=== PATIENT | male | born 1950 | race African-American/Black ===

== ENCOUNTER 2017-12-05 23:16 | Emergency (ER) | END 2017-12-07 12:39 ==

== ENCOUNTER 2018-05-01 17:44 | Emergency (ER) | payer OTHER, MEDICARE ==
[~2018-05-01] VITALS: Ht 177.8 cm; Wt 70.0 kg
[~2018-05-01 17:44] MED LIST: ASPI-817 PO; ATOR-2 PO; CHOL100062 PO; CLOP75TA19 PO; DOCU250C58 PO; FURO40TA4 PO; LISI40TA3 PO; METF500T24 PO; METO200T49 PO; SERT50TA6 PO; SPIR25TA PO; TRAZ-111 PO
[2018-05-01 17:48] VITALS: Ht 177.8 cm; Wt 70.0 kg
[2018-05-01] MEDS ORDERED: SOD CHLORIDE 0.9% 1,000 ML IV STA (17:55)
--- NOTE | 2018-05-01 17:58 | ERD ---
ER Documentation Chief Complaint Chief Complaint BIB [facility] 88 FOR EVAL OF DIZZINESS HIT HEAD AGAINST DOOR. NO KO. HPI This is a 68-year-old male with a history of dementia, hypertension, depression and diabetes. Just prior to arrival the patient who resides at [facility] had a sudden onset of dizziness. He was standing when this occurred and a nurse noticed that he turned and hit the right side of his head against a wall. This resulted in an abrasion and the patient was wearing glasses when this occurred. There was no syncope or near syncope episode. The patient is a poor historian however he denies a headache. He has no chest pain at this time. ROS All systems reviewed and are negative except as per history of present illness. Medications Home Meds Reported Medications Trazodone Hcl* (Trazodone Hcl*) 50 Mg Tablet, 75 MG PO QHS MDD 75, #30 TAB 12/06/17 Atorvastatin* (Atorvastatin*) 80 Mg Tablet, 80 MG PO QHS, #30 TAB 12/06/17 Lisinopril* (Lisinopril*) 40 Mg Tablet, 40 MG PO DAILY, #30 TAB 12/06/17 Cholecalciferol* (Vitamin D3*) 1,000 Unit Tablet, 1000 UNIT PO DAILY, TAB 12/06/17 Clopidogrel Bisulfate* (Clopidogrel Bisulfate*) 75 Mg Tablet, 75 MG PO DAILY, #30 TAB 12/06/17 Spironolactone* (Aldactone*) 25 Mg Tablet, 25 MG PO DAILY, #30 TAB 12/06/17 Furosemide* (Furosemide*) 40 Mg Tablet, 40 MG PO DAILY, TAB 12/06/17 Sertraline Hcl* (Sertraline Hcl*) 50 Mg Tablet, 50 MG PO DAILY, #30 TAB 12/06/17 Aspirin* (Aspirin* EC) 81 Mg Tablet.dr, 81 MG PO DAILY, TAB 12/06/17 Docusate Sodium* (Colace*) 250 Mg Capsule, 250 MG PO BID, #60 CAP 12/06/17 Metformin Hcl* (Metformin Hcl*) 500 Mg Tablet, 500 MG PO BID, #30 TAB 12/06/17 Metoprolol Succinate* (Toprol XL*) 200 Mg Tab.sr.24h, 200 MG PO DAILY, #30 TAB 12/06/17 Allergies Allergies: Uncoded Allergies: IV CONTRAST (Allergy, Unknown, 12/05/17) PMhx/Soc Hx Neurological Disorder: Yes (alzheimer's/dementia ) Hx Respiratory Disorders: No Hx Cardiac Disorders: Yes (htn, hyperlipidemia, CHF) Hx Psychiatric Problems: Yes (depression, SCHIZOPHRENIA) Hx Miscellaneous Medical Probl: No Hx Alcohol Use: No Hx Substance Use: No Hx Tobacco Use: No Smoking Status: Never smoker Physical Exam Vitals Vital Signs Date Temp Pulse Resp B/P (MAP) Pulse Ox O2 O2 Flow FiO2 Time Delivery Rate 05/01/18 97.3 66 19 153/104 99 17:48 (120) Physical Exam Constitutional:Well-developed. Well-nourished. HEENT:Normocephalic. 1 cm laceration over the lateral aspect of the right eye with no involvement of the lateral canthus.. No subconjunctival hemorrhage. No nasal septal hematoma. No hemotympanum..Pupils were equal round reactive to light. Moist mucous membranes.No tonsillar exudates. Neck: No nuchal rigidity. No lymphadenopathy. No posterior cervical spine tenderness or step-offs. Respiratory: Not using accessory muscles of respiration.Lungs were clear to auscultation bilaterally. No rhonchi. No rales. No wheezing. Cardiovascular: Regular rate regular rhythm.No murmurs. No rubs were appreciated.S1, S2 normal. Distal pulses are palpable 2+ bilaterally. GI: Abdomen was soft. Nontender. Non Distended. No pulsatile abdominal masses or bruits. No rebound. No guarding. Bowel sounds were present and normal. Muscle skeletal: Full range of motion of both the upper and lower extremities bilaterally.Normal muscle tone.No assymetrical calf tenderness or swelling. Skin: No petechia, no purpura. No lesions on the palms or the soles of the feet. No maculopapular rash. NEURO: Patient was alert, awake, and oriented to person place but not to time.No facial droop. Gait observed and normal with no ataxia.Speech had regular rate and rhythm. No focal neurological deficits. Result Diagram: 05/01/18175705/01/188 Results 24 hrs Laboratory Tests Test 05/01/18 17:58 White Blood Count 6.4 10^3/ul Red Blood Count 4.25 10^6/ul Hemoglobin 13.0 g/dl Hematocrit 39.7 % Mean Corpuscular Volume 93.4 fl Mean Corpuscular Hemoglobin 30.6 pg Mean Corpuscular Hemoglobin Concent 32.7 g/dl Red Cell Distribution Width 13.2 % Platelet Count 171 10^3/UL Mean Platelet Volume 10.3 fl Immature Granulocytes % 0.200 % Neutrophils % 39.2 % Lymphocytes % 48.7 % Monocytes % 9.2 % Eosinophils % 2.4 % Basophils % 0.3 % Nucleated Red Blood Cells % 0.0 /100WBC Immature Granulocytes # 0.010 10^3/ul Neutrophils # 2.5 10^3/ul Lymphocytes # 3.1 10^3/ul Monocytes # 0.6 10^3/ul Eosinophils # 0.2 10^3/ul Basophils # 0.0 10^3/ul Nucleated Red Blood Cells # 0.0 10^3/ul Prothrombin Time 12.4 Sec Prothrombin Time Ratio 1.0 INR International Normalized Ratio 0.91 Activated Partial Thromboplast Time 30.3 Sec Sodium Level 143 mmol/L Potassium Level 3.9 mmol/L Chloride Level 103 mmol/L Carbon Dioxide Level 32 mmol/L Anion Gap 8 Blood Urea Nitrogen 13 mg/dl Creatinine 0.91 mg/dl Est Glomerular Filtrat Rate mL/min > 60 mL/min Glucose Level 111 mg/dl Calcium Level 9.3 mg/dl Total Bilirubin 0.3 mg/dl Direct Bilirubin 0.00 mg/dl Indirect Bilirubin 0.3 mg/dl Aspartate Amino Transf (AST/SGOT) 29 IU/L Alanine Aminotransferase (ALT/SGPT) 11 IU/L Alkaline Phosphatase 102 IU/L Troponin I 0.015 ng/ml Total Protein 7.8 g/dl Albumin 4.1 g/dl Globulin 3.70 g/dl Albumin/Globulin Ratio 1.10 Current Medications Medications Dose Sig/Giovani Start Time Status Last (Trade) Ordered Route PRN Stop Time Admin Dose Reason Admin Sodium 1,000 ml @ Q1H STAT 05/01/18 DC 05/01/18 Chloride 1,000 mls/hr IV 17:55 19:00 05/01/18 18:54 Diphtheria/ 0.5 ml ONCE ONCE 05/01/18 DC Tetanus/Acell IM* 18:00 Pertussis 05/01/18 18:01 (Adacel) Procedures/MDM This is a 68-year-old male that presented to the emergency department with blunt head trauma. CT scan of the head was ordered and reviewed by myself and showed no intracerebral hemorrhage mass-effect or midline shift. The patient had no electrolyte abnormalities. No evidence of atypical myocardial ischemia. 12 Lead EKG tracing ordered and reviewed by myself showed: Normal sinus rhythm of 67 bpm and no arrhythmia. MN interval normal. QRS duration normal. No ST segment elevation. Q waves present in the inferior lead to [address] segment depression. No changes consistent with acute ischemia. Procedure note: The wound was irrigated using high-pressure normal saline. The wound was visualized under direct light. There is no evidence of foreign body. The wound was opposed using Steri-Strips and Dermabond. The patient tolerated the procedure well. Wound length after repair was 1 cm. I will arrange transfer back to [facility] given that the patient has a history of dementia. The patient was discharged home in fair condition. They were instructed to return to the emergency department at any time if there was any worsening of their condition. The patient stated they would follow up with their PCP in the next 24-48 hours to initiate a suitable medication regimen under the care of their PCP as well as to allow their PCP to monitor any drug reactions. The patient was discharged home with prescriptions after they gave informed consent to the new medication. They were also fully informed by myself on the adverse effects and adverse drug interactions in order to provide adequate safeguards to prevent possible adverse reactions to medications. Departure Diagnosis: Primary Impression: Dizziness Additional Impressions: Laceration Blunt head trauma Encounter type: initial encounter Qualified Codes: S09.8XXA - Other specified injuries of head, initial encounter Condition: SISSY Aceves MD May 01, 2018 17:58
[2018-05-01] MEDS ORDERED: DIPHTH/TET/ACEL PERTUSS (ADULT) 0.5 ML VIAL IM* ONE (18:00)
[2018-05-01 20:48] VITALS: BP 157/86; PULSE 82; RESP 16
== END 2018-05-01 21:01 | disposition home or self-care (01) ==
LOC: E/R 17:44 → EDBD 17:44 → E/R 21:01
DX: R42 Dizziness and giddiness (principal); R40.2142 Coma scale, eyes open, spontaneous, at arrival to emergency department; R40.2362 Coma scale, best motor response, obeys commands, at arrival to emergency department; R40.2252 Coma scale, best verbal response, oriented, at arrival to emergency department; S01.112A Laceration without foreign body of left eyelid and periocular area, initial encounter; S09.8XXA Other specified injuries of head, initial encounter; I50.9 Heart failure, unspecified; G30.9 Alzheimer's disease, unspecified; I11.0 Hypertensive heart disease with heart failure; W01.198A Fall on same level from slipping, tripping and stumbling with subsequent striking against other object, initial encounter; Y92.9 Unspecified place or not applicable; Z23 Encounter for immunization; Z79.82 Long term (current) use of aspirin; Z79.84 Long term (current) use of oral hypoglycemic drugs; Z79.01 Long term (current) use of anticoagulants
CPT/HCPCS: 12011; 70450; 80053; 84484; 85025; 85610; 85730; 90471; 90715; 93005; 99285; J7030